=== PATIENT | female | born 1965 ===

== ENCOUNTER 2017-03-20 04:06 | Emergency (ER) | payer SELFPAY ==
[2017-03-20 04:18] VITALS: BP 167/105; PULSE 108; RESP 16; TEMP 98.9; O2SAT 100
[2017-03-20] MEDS ORDERED: Sodium Chloride 0.9% 1,000 ML IV STA (04:35)
--- NOTE | 2017-03-20 04:36 | ED PDOC ---
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 Reports pain is in right side of her head. Reports she feels like "something burst". Tylenol taken 15 minutes [employer]TE[employer]CHNICIAN. Past Medical History Vital Signs: Last Vital Signs Temp 98.9 F 03/20/17 04:16 Pulse 108 H 03/20/17 04:16 Resp 16 03/20/17 04:16 BP 167/105 H 03/20/17 04:16 Pulse Ox 100 03/20/17 04:16 - Allergies Allergies/Adverse Reactions: Allergies Allergy/AdvReac Type Severity Reaction Status Date / Time No Known Allergies Allergy Verified 03/20/17 04:16 - ECG O2 Sat by Pulse Oximetry: 100 Disposition - Disposition
--- NOTE | 2017-03-20 08:42 | CT ---
PROCEDURE: CT HEAD WITHOUT CONTRAST. HISTORY: headache COMPARISON: None available. TECHNIQUE: Axial computed tomography images were obtained through the head/brain without intravenous contrast. Radiation dose: Total exam DLP = 1007.76 mGy-cm. This CT exam was performed using one or more of the following dose reduction techniques: Automated exposure control, adjustment of the mA and/or kV according to patient size, and/or use of iterative reconstruction technique. FINDINGS: HEMORRHAGE: No intracranial hemorrhage. BRAIN: No mass effect or edema. No atrophy or chronic microvascular ischemic changes.Please note that MRI with diffusion imaging is more sensitive in the detection of acute ischemic event. VENTRICLES: No hydrocephalus. CALVARIUM: Unremarkable. PARANASAL SINUSES: Mild mucosal thickening of the ethmoid and left maxillary sinuses; correlate clinically for chronic sinusitis. MASTOID AIR CELLS: Unremarkable as visualized. No inflammatory changes. OTHER FINDINGS: None. IMPRESSION: No acute intracranial pathology identified. Mild mucosal thickening of the ethmoid and left maxillary sinuses ; correlate clinically for history of chronic sinusitis. Preliminary impression was provided by virtual radiologic.
== END 2017-03-20 06:10 | disposition home or self-care (01) ==
LOC: EDBD 04:06 → H.ER 04:06
DX: J32.9 Chronic sinusitis, unspecified (principal)
CPT/HCPCS: 70450; 81025; 96374; 96375; 99284; J1885; J2765; J7040